=== PATIENT | male | born 1960 | race Caucasian/White ===

== ENCOUNTER 2017-08-23 03:00 | Emergency (ER) | payer OTHER ==
[~2017-08-23] VITALS: Ht 185.4 cm; Wt 115.5 kg
[~2017-08-23 03:00] MED LIST: AMOX500T PO; HYDR10TA16 PO; KETO10 PO; LEVA500T33 PO; PERC10TA27 PO; PRED10 PO; TAMS0.4C67 PO; Z.0.NO CURRENT MEDS
[2017-08-23 03:02] VITALS: BP 168/80; PULSE 61; RESP 16; TEMP 97.2; O2SAT 97
[2017-08-23] MEDS ORDERED: HYDROmorphone HCL PF 0.5 MG/0.5 ML SYRINGE IV PUSH ONE (03:15)
[2017-08-23] MEDS ORDERED: ONDANSETRON HCL 4 MG/2 ML VIAL IVP ONE (03:15)
[2017-08-23] MEDS ORDERED: SODIUM CHLORIDE 0.9% FLUSH 10 ML FLUSH IV FLUSH PRN (03:15)
[2017-08-23 03:20] VITALS: O2SAT 97
--- NOTE | 2017-08-23 03:22 | PD ---
HPI Chief Complaint: Abdominal Pain Time Seen by Provider: 03:13 Travel History International Travel<30 days: No Contact w/Intl Traveler<30days: No Traveled to known affect area: No History of Present Illness HPI 57-year-old male presents to the emergency department by private transportation the care of his spouse for evaluation of 3 hours of left-sided abdominal pain. Patient states symptoms began around midnight. Patient states he felt well all day. Patient does not report any dietary indiscretion well water ingestion or foreign travel. Patient denies any injury. Patient denies referred pain to the lower extremities and denies any lower extremity numbness tingling or weakness bladder or bowel dysfunction or saddle anesthesia. Patient is not reporting back pain or flank pain. No reported dysuria frequency urgency or hematuria. Patient has had kidney stone in the past but pain is not similar. Patient denies personal history of colitis diverticulosis or diverticulitis. Patient has had bowel movement since onset of symptoms. Patient has had no nausea or vomiting. Patient denies fever or chills. No recent respiratory illness. Patient denies any shortness of breath or abdominal pain. Patient does have history of hypertension but does not know the name of his blood pressure medication. Patient does not smoke cigarettes. No prior similar abdominal pain in the past. Patient denies other past medical history or surgeries. Patient is unable to identify exacerbating or alleviating factors. Patient's pain is estimated as 9.5/10 in intensity. Patient has taken no medications for symptom relief prior to arrival to the emergency department. PFSH Past Medical History Narrative Medical Hypertension kidney stones; no tobacco use; nursing notes reviewed Diminished Hearing: No Kidney Stones: Yes Immunizations Current: Yes Past Surgical History Tonsillectomy: Yes Social History Alcohol Use: No Tobacco Use: No Substance Use: No Allergies-Medications (Allergen,Severity, Reaction): Coded Allergies: No Known Allergies (Verified Adverse Reaction, Unknown, 08/23/17) Reported Meds & Prescriptions Reported Meds & Active Scripts Active Review of Systems Except as stated in HPI: all other systems reviewed are Neg General / Constitutional: No: Fever, Chills HENT: No: Congestion Cardiovascular: No: Chest Pain or Discomfort Respiratory: No: Shortness of Breath Gastrointestinal: No: Abdominal Pain Genitourinary: No: Dysuria, Flank Pain Musculoskeletal: Positive: Limited ROM, No: Myalgias, Arthralgias Skin: No Rash Neurologic: No: Weakness, Dizziness, Syncope, Focal Abnormalities, Coordination Problem Psychiatric: No: Anxiety Hematologic/Lymphatic: No: Easy Bruising Physical Exam Narrative GENERAL: Well-developed well-nourished female not in obvious distress no respiratory distress. SKIN: Warm and dry. HEAD: Normocephalic. EYES: No scleral icterus. No injection or drainage. NECK: Supple, trachea midline. No JVD or lymphadenopathy. CARDIOVASCULAR: Regular rate and rhythm without murmurs, gallops, or rubs. RESPIRATORY: Breath sounds equal bilaterally. No accessory muscle use. GASTROINTESTINAL: Abdomen soft, non-tender, nondistended. MUSCULOSKELETAL: No cyanosis, or edema. BACK: Nontender without obvious deformity. No CVA tenderness. Data Data Last Documented VS Vital Signs Date Time Temp Pulse Resp B/P (MAP) Pulse Ox O2 Delivery O2 Flow Rate FiO2 08/23/17 05:03 73 16 115/67 (83) 99 Room Air 08/23/17 03:02 97.2 Orders Orders Complete Blood Count With Diff (08/23/17 03:13) Comprehensive Metabolic Panel (08/23/17 03:13) Lipase (08/23/17 03:13) Prothrombin Time / Inr (Pt) (08/23/17 03:13) Act Partial Throm Time (Ptt) (08/23/17 03:13) Urinalysis - C+S If Indicated (08/23/17 03:13) Iv Access Insert/Monitor (08/23/17 03:13) Ecg Monitoring (08/23/17 03:13) Oximetry (08/23/17 03:13) Ondansetron Inj (Zofran Inj) (08/23/17 03:15) Sodium Chloride 0.9% Flush (Ns Flush) (08/23/17 03:15) Hydromorphone Pf Inj (Dilaudid Pf Inj) (08/23/17 03:15) Ct Abd/Pel W/O Iv Contrast (08/23/17 ) Ketorolac Inj (Toradol Inj) (08/23/17 04:15) Sodium Chlor 0.9% 1000 Ml Inj (Ns 1000 M (08/23/17 04:15) Tamsulosin (Flomax) (08/23/17 05:00) Labs Laboratory Tests Test 08/23/17 03:25 White Blood Count 9.0 TH/MM3 Red Blood Count 5.52 MIL/MM3 Hemoglobin 16.1 GM/DL Hematocrit 47.6 % Mean Corpuscular Volume 86.2 FL Mean Corpuscular Hemoglobin 29.1 PG Mean Corpuscular Hemoglobin Concent 33.8 % Red Cell Distribution Width 11.9 % Platelet Count 251 TH/MM3 Mean Platelet Volume 8.6 FL Neutrophils (%) (Auto) 74.9 % Lymphocytes (%) (Auto) 14.9 % Monocytes (%) (Auto) 5.6 % Eosinophils (%) (Auto) 2.6 % Basophils (%) (Auto) 2.0 % Neutrophils # (Auto) 6.8 TH/MM3 Lymphocytes # (Auto) 1.3 TH/MM3 Monocytes # (Auto) 0.5 TH/MM3 Eosinophils # (Auto) 0.2 TH/MM3 Basophils # (Auto) 0.2 TH/MM3 CBC Comment DIFF FINAL Differential Comment Prothrombin Time 10.4 SEC Prothromb Time International Ratio 0.9 RATIO Activated Partial Thromboplast Time 27.2 SEC Urine Color YELLOW Urine Turbidity CLEAR Urine pH 5.0 Urine Specific [place] 1.022 Urine Protein NEG mg/dL Urine Glucose (UA) NEG mg/dL Urine Ketones NEG mg/dL Urine Occult Blood LARGE Urine Nitrite NEG Urine Bilirubin NEG Urine Leukocyte Esterase NEG Urine RBC 25-49 /hpf Urine WBC 0-2 /hpf Urine Squamous Epithelial Cells 0-5 /hpf Urine Calcium Oxalate Crystals FEW /hpf Urine Bacteria NONE /hpf Microscopic Urinalysis Comment CULT NOT INDICATED Blood Urea Nitrogen 11 MG/DL Creatinine 1.30 MG/DL Random Glucose 124 MG/DL Total Protein 7.8 GM/DL Albumin 3.9 GM/DL Calcium Level 8.7 MG/DL Alkaline Phosphatase 82 U/L Aspartate Amino Transf (AST/SGOT) 40 U/L Alanine Aminotransferase (ALT/SGPT) 64 U/L Total Bilirubin 0.5 MG/DL Sodium Level 137 MEQ/L Potassium Level 3.4 MEQ/L Chloride Level 102 MEQ/L Carbon Dioxide Level 29.3 MEQ/L Anion Gap 6 MEQ/L Estimat Glomerular Filtration Rate 57 ML/MIN Lipase 177 U/L MDM Medical Decision Making Medical Screen Exam Complete: Yes Emergency Medical Condition: Yes Medical Record Reviewed: Yes Interpretation(s) CBC & BMP Diagram 08/23/17 03:25 Total Protein 7.8, Albumin 3.9, Calcium Level 8.7, Alkaline Phosphatase 82, Aspartate Amino Transf (AST/SGOT) 40 H, Alanine Aminotransferase (ALT/SGPT) 64, Total Bilirubin 0.5 Vital Signs Date Time Temp Pulse Resp B/P (MAP) Pulse Ox O2 Delivery O2 Flow Rate FiO2 08/23/17 03:20 97 08/23/17 03:02 97.2 61 16 168/80 (109) 97 Urinalysis: Positive red blood cells positive blood culture not indicated Coagulation studies: Within normal range CT ABD/PEL w/o: CONCLUSION: 1. 2 small distal left ureteral calculi with mild hydroureter and hydronephrosis. 2. Multiple small left renal calculi with inflammatory change surrounding the left kidney. Eliot Renee MD on August 23, 2017 at 4:48 Board Certified Radiologist. This report was verified electronically. 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 obtained specimens collected and sent for resulting patient administered Dilaudid 0.5 mg IV and Zofran 4 mg IV Lab values found to be grossly within normal range; at 4:05 AM patient taken to CT for imaging Patient given Toradol 30 mg IV, preliminary look at CT by md shows distal ureter stone/stones with hydronephrosis and nephrolithiasis At 5 AM patient is comfortable after Toradol pain is essentially resolved official reading by CT is consistent with a 4 mm and a 5 mm distal ureteral stone 3 cm below the UVJ with hydroureter and hydronephrosis and some perinephric inflammatory changes of the left kidney as well as nephrolithiasis of left kidney. The right kidney appears normal and otherwise imaging study appears unremarkable per reading radiologist. Patient given prescription for Flomax, Zofran, Percocet, and Macrobid. Patient is encouraged to follow-up with urologist. Patient encouraged her to the emergency department for any concerns or change in condition Diagnosis Primary Impression: Acute unilateral obstructive uropathy Additional Impressions: Ureterolithiasis Left nephrolithiasis Referrals: Urologist 2 days Phone office on Thursday to schedule follow-up appointment; on-call urologist is Dr. Awad Patient Instructions: General Instructions, Narcotic given in the ED Additional Instructions: Increase fluid hydration Take medications as prescribed as needed Follow-up with urologist; Dr. Awad windows application packager for urology Follow-up with your primary care provider as needed Take medications as prescribed as needed for nausea and/or vomiting Strain urine Return to emergency department for fever pain vomiting or any concerns Take acetaminophen/Tylenol every 4 hours as needed for fever 100.4F or greater or may take ibuprofen/Advil/Motrin 600 mg as often as every 6 hours for fever or for inflammatory pain Med/Other Pt SpecificInfo: Prescription(s) given Scripts Nitrofurantoin Monohydrate Macrocrystals (Macrobid) 100 Mg Capsule 100 MG PO BID for Infection, #6 CAP 0 Refills Prov: Amanda Guillen MD 08/23/17 Ondansetron Odt (Zofran Odt) 4 Mg Tab 4 MG SL Q6HR Y for Nausea/Vomiting, #10 TAB 0 Refills Prov: Amanda Guillen MD 08/23/17 Tamsulosin (Flomax) 0.4 Mg Cap 0.4 MG PO HS for Manage Prostate Problems, #7 CAP 0 Refills Prov: Amanda Guillen MD 08/23/17 Oxycodone-Acetaminophen (Percocet) 5-325 mg Tab 1-2 TAB PO Q6H Y for PAIN, #14 TAB 0 Refills Prov: Amanda Guillen MD 08/23/17 Disposition: 01 DISCHARGE HOME Condition: Stable Amanda Guillen MD Aug 23, 2017 03:22
[2017-08-23 03:39] LABS: BLOOD, URINE LARGE (NEG); GLUCOSE,URINE NEG (NEG); KETONE, URINE NEG (NEG); NITRITE,URINE NEG (NEG)
[2017-08-23 03:41] LABS: AUTOMATED NEUTROPHIL # 6.8 TH/MM3 (1.8-7.7); BASOPHIL # 0.2 TH/MM3 (0-0.2); EOSINOPHIL # 0.2 TH/MM3 (0-0.4); EOSINOPHIL % 2.6 % (0.0-4.0); HEMATOCRIT 47.6 % (39.0-51.0); HEMO FLAGS DIFF FINAL; LYMPH % 14.9 % (9.0-44.0); LYMPHOCYTE # 1.3 TH/MM3 (1.0-4.8); MEAN CELL VOLUME 86.2 FL (80.0-100.0); MEAN CORPUSCULAR HEMOGLOBIN 29.1 PG (27.0-34.0); MEAN CORPUSCULAR HGB CONC 33.8 % (32.0-36.0); MONO % 5.6 % (0.0-8.0); NEUT % 74.9 % (16.0-70.0); PLATELET COUNT 251 TH/MM3 (150-450); RED BLOOD COUNT 5.52 MIL/MM3 (4.50-5.90); RED CELL DISTRIBUTION WIDTH 11.9 % (11.6-17.2)
[2017-08-23 03:47] LABS: SQUAMOUS EPITHELIAL CELL URINE 0-5 /hpf (0-5); URINE COLOR YELLOW (YELLW/STRAW); WBC, URINE 0-2 /hpf (0-5)
[2017-08-23 03:48] LABS: CALCIUM OXALATE CRYSTALS,URINE FEW /hpf; CHLORIDE 102 MEQ/L (98-107); COMMENT (UR) CULT NOT INDICATED; CULTURE IF INDICATED CULT NOT INDICATED; POTASSIUM 3.4 MEQ/L (3.5-5.1); SODIUM (NA) 137 MEQ/L (136-145)
[2017-08-23 03:52] LABS: ANION GAP 6 MEQ/L (5-15); BICARBONATE 29.3 MEQ/L (21.0-32.0)
[2017-08-23 03:53] LABS: APTT (PATIENT) 27.2 SEC (24.3-30.1); BLOOD UREA NITROGEN 11 MG/DL (7-18); INTERNATIONAL NORMALIZED RATIO 0.9 RATIO; PROTHROMBIN TIME - PATIENT 10.4 SEC (9.8-11.6)
[2017-08-23 03:55] LABS: ALT (GPT) 64 U/L (12-78); AST (GOT) 40 U/L (15-37)
[2017-08-23 03:56] LABS: GLOMERULAR FILTRATION RATE 57 ML/MIN (>89)
[2017-08-23 03:57] LABS: TOTAL BILIRUBIN ADULT 0.5 MG/DL (0.2-1.0)
[2017-08-23 03:58] LABS: ALKALINE PHOSPHATASE 82 U/L (45-117)
[2017-08-23] MEDS ORDERED: SODIUM CHLOR 0.9% 1000 ML INJ 1,000 ML IV SCH (04:15)
[2017-08-23] MEDS ORDERED: KETOROLAC TROMETHAMINE 30 MG/ML (IVP) VIAL IV PUSH ONE (04:15)
[2017-08-23 04:23] VITALS: BP 130/68; PULSE 54; RESP 16; O2SAT 97
--- NOTE | 2017-08-23 04:53 | RADRPT ---
EXAM DATE/TIME: 08/23/2017 04:04 [facility] COMPARISON: No previous studies available for comparison. INDICATIONS : Left side abdominal pain for 3 hours. ORAL CONTRAST: No oral contrast ingested. RADIATION DOSE: 27.80 CTDIvol (mGy) MEDICAL HISTORY : Renal calculi. Hypertension. Cardiovascular disease SURGICAL HISTORY : None. ENCOUNTER: Initial ACUITY: 1 day PAIN SCALE: 10/10 LOCATION: Left upper quadrant TECHNIQUE: Volumetric scanning of the abdomen and pelvis was performed. Using automated exposure control and ad justment of the mA and/or kV according to patient size, radiation dose was kept as low as reasonably achievable to obtain optimal diagnostic quality images. DICOM format image data is available electro nically for review and comparison. FINDINGS: LOWER LUNGS: The visualized lower lungs are clear. LIVER: Homogeneous density without lesion. There is no dilation of the biliary tree. No calcified gallston es. SPLEEN: Normal size without lesion. PANCREAS: Within normal limits. KIDNEYS: The right kidney is unremarkable in appearance. The left kidney is mildly enlarged with mild hydronep hrosis. There are multiple calculi in the lower pole, the largest measures up to approximately 9 mm. There is mild surrounding inflammatory change. There is dilatation of the left ureter down to the lev el of the lower pelvis where there are 2 adjacent small distal ureteral calculi measuring approximate ly 5 and 4 mm in diameter. This is located approximately 3 cm above the ureterovesicular junction. ADRENAL GLANDS: Within normal limits. VASCULAR: There is no aortic aneurysm. BOWEL/MESENTERY: The stomach, small bowel, and colon demonstrate no acute abnormality. There is no free intraperitone al air or fluid. ABDOMINAL WALL: Within normal limits. RETROPERITONEUM: There is no lymphadenopathy. BLADDER: No wall thickening or mass. REPRODUCTIVE: Within normal limits. INGUINAL: There is no lymphadenopathy or hernia. MUSCULOSKELETAL: The sacroiliac joints are partially fused. CONCLUSION: 1. 2 small distal left ureteral calculi with mild hydroureter and hydronephrosis. 2. Multiple small left renal calculi with inflammatory change surrounding the left kidney. Eliot Renee MD on August 23, 2017 at 4:48 Board Certified Radiologist. This report was verified electronically.
[2017-08-23] MEDS ORDERED: TAMSULOSIN HCL 0.4 MG CAP PO ONE (05:00)
[2017-08-23 05:03] VITALS: BP 115/67; PULSE 73; RESP 16; O2SAT 99
[2017-08-23] MEDS ORDERED: TAMS5CAP PO (05:06)
[2017-08-23] MEDS ORDERED: ZOFR4TAB3 SL (05:06)
[2017-08-23] MEDS ORDERED: PERC5TAB12 PO (05:06)
[2017-08-23] MEDS ORDERED: MACR100C2 PO (05:07)
== END 2017-08-23 05:16 | disposition home or self-care (01) ==
LOC: PHED 03:00
DX: N13.2 Hydronephrosis with renal and ureteral calculous obstruction (principal)
CPT/HCPCS: 74176; 80053; 81001; 83690; 85025; 85610; 85730; 96361; 96374; 96375; 99285; J1170; J1885; J2405; J7030